=== PATIENT | male | born 1980 | race Caucasian/White ===

== ENCOUNTER 2018-09-15 16:23 | Emergency (ER) | payer OTHER ==
--- NOTE | 2018-09-15 17:21 | CRLCR ---
Indication: Injury and pain Technique: Left 4th finger 3 views Comparison: None Findings/Impression: Bones: Transverse nondisplaced fracture is in the proximal shaft of the middle phalanx within adjacent soft tissue injury. Tiny elements of shrapnel are also in this location. No other osseous abnormality. Joint spaces: Unremarkable. Dictated by Ghassan Jalloh MD @ Sep 15 2018 5:17PM Signed by Dr. Ghassan Jalloh @ Sep 15 2018 5:20PM
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
[2018-09-15] MEDS ORDERED: Bacitracin Oint 1 GM U/D Packet TOP ONE (18:39)
== END 2018-09-15 19:03 | disposition home or self-care (01) ==
LOC: JP.ED 16:23
DX: S62.655A Nondisplaced fracture of middle phalanx of left ring finger, initial encounter for closed fracture (principal); S61.225A Laceration with foreign body of left ring finger without damage to nail, initial encounter; W34.00XA Accidental discharge from unspecified firearms or gun, initial encounter
CPT/HCPCS: 12002; 73140; 99284; J2001

== ENCOUNTER 2019-10-18 21:34 | Emergency (ER) | payer OTHER ==
[2019-10-18] MEDS ORDERED: Cyclobenzaprine 10 MG Tab PO ONE (22:03)
[2019-10-18] MEDS ORDERED: fentaNYL 100 MCG/2 ML SDV IM ONE (22:03)
--- NOTE | 2019-10-18 22:05 | EDM.PDOC ---
ED HPI GENERAL MEDICAL PROBLEM - General Chief Complaint: Back Pain or Injury Stated Complaint: BACK PAIN Time Seen by Provider: 10/18/19 22:00 Source of Information: Reports: Patient, RN Notes Reviewed History Limitations: Reports: No Limitations - History of Present Illness INITIAL COMMENTS - FREE TEXT/NARRATIVE: 38-year-old gentleman presents emergency department today with complaint of low back pain he injured himself a couple hours prior where he slipped fell down the steps on a deck landed on his backside he states he is ambulating okay but he gets in a certain position and he will get significant pain and muscle spasms in his low back no loss of bowel or bladder - Related Data Allergies Allergy/AdvReac Type Severity Reaction Status Date / Time amoxicillin Allergy Diarrhea Verified 10/18/19 21:53 Home Meds: Home Meds Citalopram [Citalopram HBr] 20 mg PO BEDTIME 01/01/18 [History] Lisinopril 10 mg PO BEDTIME 01/01/18 [History] hydroCHLOROthiazide [Hydrochlorothiazide] 25 mg PO DAILY 09/15/18 [History] Past Medical History Cardiovascular History: Reports: Hypertension Musculoskeletal History: Reports: Fracture Other Musculoskeletal History: left hand 4th digit Psychiatric History: Reports: Anxiety - Infectious Disease History Infectious Disease History: Reports: Chicken Pox - Past Surgical History Head Surgeries/Procedures: Reports: None Musculoskeletal Surgical History: Reports: None Social & Family History - Tobacco Use Smoking Status *Q: Never Smoker - Caffeine Use Caffeine Use: Reports: Soda ED ROS GENERAL - Review of Systems Review Of Systems: See Below Constitutional: Reports: No Symptoms GI/Abdominal: Reports: No Symptoms Musculoskeletal: Reports: Back Pain Neurological: Reports: No Symptoms ED EXAM,LOWER BACK PAIN/INJURY - Physical Exam Exam: See Below Exam Limited By: No Limitations General Appearance: Alert, Mild Distress Respiratory/Chest: No Respiratory Distress Back Exam: Normal Inspection, Decreased Range of Motion, Muscle Spasm, Paraspinal Tenderness. No: CVA Tenderness (R), CVA Tenderness (L), Vertebral Tenderness Course - Vital Signs Last Recorded V/S: Last Vital Signs Temp 97.7 F 10/18/19 21:57 Pulse 87 10/18/19 21:57 Resp 16 10/18/19 21:57 BP 166/113 H 10/18/19 21:57 Pulse Ox 92 L 10/18/19 21:57 - Orders/Labs/Meds Meds: Medications Discontinued Medications Generic Name Dose Route Start Last Admin Trade Name Natalie PRN Reason Stop Dose Admin Cyclobenzaprine HCl 10 mg 10/18/19 22:03 10/18/19 22:10 Flexeril PO 10/18/19 22:04 10 mg ONETIME ONE Administration Fentanyl 50 mcg 10/18/19 22:03 10/18/19 22:10 Sublimaze IM 10/18/19 22:04 50 mcg ONETIME ONE Administration Departure - Departure Time of Disposition: 22:26 Disposition: Home, Self-Care 01 Condition: Fair Clinical Impression: Low back pain Qualifiers: Chronicity: acute Back pain laterality: bilateral Sciatica presence: without sciatica Qualified Code(s): M54.5 - Low back pain - Discharge Information Instructions: Acute Back Pain, Adult Referrals: Darci Pineda MD [Primary Care Provider] - Forms: ED Department Discharge Additional Instructions: Use ibuprofen for baseline pain control, use hydrocodone for breakthrough pain, use Flexeril as needed for muscle relaxant, please followup with your primary care provider in 3-5 days if not better, please call return to the emergency department with worsening of symptoms. Sepsis Event Note - Evaluation Sepsis Screening Result: No Definite Risk - Focused Exam Vital Signs: Vital Signs Temp Pulse Resp BP Pulse Ox 10/18/19 21:57 97.7 F 87 16 166/113 H 92 L 10/18/19 21:49 97.7 F 87 16 166/113 H 92 L Date Exam was Performed: 10/18/19 Time Exam was Performed: 22:25 - Assessment/Plan Plan: Assessment Acuity = acute Site and laterality = low back pain with muscle spasm Etiology = secondary to a fall Manifestations = none Location of injury = Home Lab values = none Plan He had good improvement combination fentanyl and Flexeril discharged home hydrocodone 5/325 1 tab p.o. 3 times daily PRN total #10 Flexeril 10 mg 1 tab p.o. 3 times daily PRN total 15 follow-up primary care 3 to 5 days if not better This note was dictated using [employer] recognition software please call with any questions on syntax or grammar.
== END 2019-10-18 22:51 | disposition home or self-care (01) ==
LOC: JP.ED 21:34
DX: M54.5 Low back pain (principal); I10 Essential (primary) hypertension; F41.9 Anxiety disorder, unspecified; Z88.1 Allergy status to other antibiotic agents; Z79.899 Other long term (current) drug therapy
CPT/HCPCS: 96372; 99283; A9270; J3010

== ENCOUNTER 2025-01-20 12:35 | Emergency (ER) | payer OTHER ==
[2025-01-20] MEDS: Diphtheria,Pertussis(Acell),Tetanus Vaccine 0.5 ML Syringe IM ONE (14:58)
[2025-01-20] MEDS: Lidocaine 1% with EPINEPHrine 1:100,000 20 ML MDV INJECT ONE (14:58)
== END 2025-01-20 15:51 | disposition home or self-care (01) ==
LOC: JP.ED 12:35
DX: S61.511A Laceration without foreign body of right wrist, initial encounter (principal); Z23 Encounter for immunization; I10 Essential (primary) hypertension; Z88.0 Allergy status to penicillin; Z79.899 Other long term (current) drug therapy; W26.0XXA Contact with knife, initial encounter
CPT/HCPCS: 12004; 90471; 90715; 99282; J2004; 99283

== ENCOUNTER 2025-01-21 07:59 | Day surgery (SDC) | payer OTHER ==
[2025-01-21] MEDS ORDERED: Midazolam 1 MG/ML 2 ML SDV ONE (08:22)
[2025-01-21] MEDS ORDERED: Propofol 200 MG/20 ML SDV ONE ×2 (08:22→12:42)
[2025-01-21] MEDS ORDERED: fentaNYL 100 MCG/2 ML SDV ONE (08:22)
[2025-01-21 09:15] LABS: PLATELET COUNT,PLT 262.0 K/uL (130-375); RED BLOOD CELL COUNT 4.75 M/uL (4.14-5.76); WHITE BLOOD CELL COUNT,WBC 7.3 K/uL (3.2-11.0)
[2025-01-21 09:26] LABS: BLOOD UREA NITROGEN,BUN 17 mg/dL (7-18); CARBON DIOXIDE,CO2 32 mmol/L (21-32); CHLORIDE,CL 103 mmol/L (100-108); CREATININE 1.2 mg/dL (0.8-1.3); ESTIMATED GFR 76 mL/min (>60); GLUCOSE RANDOM 105 mg/dL (74-106); POTASSIUM,K 4.3 mmol/L (3.6-5.2); SODIUM,NA 140 mmol/L (140-148)
[2025-01-21] MEDS: Nozin Nasal Sanitizer NASBOTH ONE (09:54)
[2025-01-21] MEDS: Lactated Ringers 1,000 ML IV SCH (10:00)
[2025-01-21] MEDS: Acetaminophen/HYDROcodone 325-5 MG Tab PO ONE (14:39)
== END 2025-01-21 15:43 | disposition home or self-care (01) ==
LOC: JP.SDS 07:59
PROVIDERS: ATTEND Specialist
DX: S66.221A Laceration of extensor muscle, fascia and tendon of right thumb at wrist and hand level, initial encounter (principal); I10 Essential (primary) hypertension; Z88.1 Allergy status to other antibiotic agents; Z79.899 Other long term (current) drug therapy
CPT/HCPCS: 26418; 36415; 80048; 85027; A9270; J0665; J0690; J2250; J2704; J3010; J7120